=== PATIENT | male | born 1985 | race Caucasian/White ===

== ENCOUNTER 2017-02-28 22:54 | Inpatient (IN) | payer SELFPAY ==
[~2017-02-28] VITALS: Ht 182.9 cm; Wt 141.5 kg
[2017-02-28] MEDS ORDERED: MORPHINE SULFATE 10 MG/ML VIAL. IV ONE (23:30)
--- NOTE | 2017-02-28 23:30 | PHYS DOC ---
Adult General Chief Complaint Chief Complaint: COUGH HPI HPI Patient is a 31 year old male presenting with complaints of subjective fever, coughing up blood, this has been going on for 2-3 days. 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 Pt only past medical history is chemical exposure to lungs in 2007, pt is former smoker and he last smoked 1 month ago. Patient denies any recent trauma, denies pain or swelling in the lower extremities. Patient denies any rashes, vomiting, diarrhea, abdominal pain or back pain. Patient describes pain with inspiration. Review of Systems Review of Systems Constitutional: Yes to subjective fevers, no chills Eyes: Denies change in visual acuity, redness, or eye pain [] HENT: Denies nasal congestion. Yes to sore throat Respiratory: Yes to bloody cough and shortness of breath [] Cardiovascular: No chest pain unless taking deep breaths GI: Denies abdominal pain, nausea, vomiting, bloody stools or diarrhea [] : Denies dysuria or hematuria [] Musculoskeletal: Denies back pain or joint pain [] Integument: Denies rash or skin lesions [] Neurologic: Denies headache, focal weakness or sensory changes [] Current Medications Current Medications Current Medications Medications (Trade) Dose Ordered Sig/Stalin Start Time Stop Time Status Last Admin Dose Admin Info (Do NOT chart on this entry -- for MONITORING) 1 each PRN DAILY PRN 03/01/17 00:00 03/03/17 00:00 Iohexol (Omnipaque 300 Mg/ml) 75 ml 1X ONCE 03/01/17 00:00 03/01/17 00:01 DC 03/01/17 00:30 75 ML Morphine Sulfate 4 mg 1X ONCE 03/01/17 01:30 03/01/17 01:31 Sodium Chloride 1,000 ml @ 1,000 mls/hr 1X ONCE 02/28/17 23:45 03/01/17 00:44 DC 02/28/17 23:45 1,000 MLS/HR Allergies Allergies Allergies Coded Allergies Type Severity Reaction Last Updated Verified No Known Drug Allergies 02/28/17 No Physical Exam Physical Exam Constitutional: Well developed, well nourished, mild distress, non-toxic appearance. [] HENT: Normocephalic, atraumatic,, oropharynx dry, no oral exudates, nose normal. [] Eyes: EOMI, conjunctiva normal, no discharge. [] Neck: Normal range of motion, no tenderness, supple, no stridor. [] Cardiovascular: Tachycardia, equal pulses, normal perfusion Lungs & Thorax: Bilateral breath sounds clear to auscultation, mild tachypnea Abdomen: Bowel sounds normal, soft, no tenderness, no masses, no pulsatile masses. [] Skin: Warm, dry, no erythema, no rash. [] Back: No tenderness, no CVA tenderness. [] Extremities: No tenderness, no cyanosis, no DVT, ROM intact, no edema. [] Neurologic: Alert and oriented X 3, normal motor function, , no focal deficits noted. [] Psychologic: Affect normal, judgement normal, mood normal. [] Current Patient Data Vital Signs Vital Signs Date Time Temp Pulse Resp B/P (MAP) Pulse Ox O2 Delivery O2 Flow Rate FiO2 03/01/17 01:14 16 94 Room Air 03/01/17 00:19 110 146/67 (93) 02/28/17 23:15 100.6 100.6 Lab Values Laboratory Tests Test 02/28/17 23:35 White Blood Count 14.4 x10^3/uL (4.0-11.0) H Red Blood Count 4.94 x10^6/uL (4.30-5.70) Hemoglobin 14.4 g/dL (13.0-17.5) Hematocrit 42.5 % (39.0-53.0) Mean Corpuscular Volume 86 fL (79-100) Mean Corpuscular Hemoglobin 29 pg (25-35) Mean Corpuscular Hemoglobin Concent 34 g/dL (31-37) Red Cell Distribution Width 13.8 % (11.5-14.5) Platelet Count 318 x10^3/uL (140-400) Neutrophils (%) (Auto) 70 % (31-73) Lymphocytes (%) (Auto) 15 % (24-48) L Monocytes (%) (Auto) 13 % (0-9) H Eosinophils (%) (Auto) 1 % (0-3) Basophils (%) (Auto) 1 % (0-3) Neutrophils # (Auto) 10.0 x10^3uL (1.8-7.7) H Lymphocytes # (Auto) 2.1 x10^3/uL (1.0-4.8) Monocytes # (Auto) 1.9 x10^3/uL (0.0-1.1) H Eosinophils # (Auto) 0.1 x10^3/uL (0.0-0.7) Basophils # (Auto) 0.1 x10^3/uL (0.0-0.2) Segmented Neutrophils % 71 % (35-66) H Band Neutrophils % 2 % (0-9) Lymphocytes % 14 % (24-48) L Monocytes % 12 % (0-10) H Eosinophils % 1 % (0-5) Platelet Estimate Adequate (ADEQUATE) Prothrombin Time 13.9 SEC (11.7-14.0) Prothrombin Time INR 1.1 (0.8-1.1) Sodium Level 134 mmol/L (136-145) L Potassium Level 3.8 mmol/L (3.5-5.1) Chloride Level 98 mmol/L (98-107) Carbon Dioxide Level 29 mmol/L (21-32) Anion Gap 7 (6-14) Blood Urea Nitrogen 14 mg/dL (8-26) Creatinine 0.9 mg/dL (0.7-1.3) Estimated GFR (Cockcroft-Gault) 99.8 BUN/Creatinine Ratio 16 (6-20) Glucose Level 118 mg/dL (70-99) H Calcium Level 8.9 mg/dL (8.5-10.1) Total Bilirubin 0.4 mg/dL (0.2-1.0) Aspartate Amino Transferase (AST) 23 U/L (15-37) Alanine Aminotransferase (ALT) 24 U/L (16-63) Alkaline Phosphatase 75 U/L (46-116) Total Protein 8.0 g/dL (6.4-8.2) Albumin 3.3 g/dL (3.4-5.0) L Albumin/Globulin Ratio 0.7 (1.0-1.7) L Laboratory Tests 02/28/17 23:35 Laboratory Tests 02/28/17 23:35 EKG EKG [] Radiology/Procedures Radiology/Procedures CT: no PE, infiltrates L lingula Course & Med Decision Making Course & Med Decision Making Pertinent Labs and Imaging studies reviewed. (See chart for details) 0122 HR 107, pt still having some pain but improved. Agrees with admission [] Dragon Disclaimer Dragon Disclaimer This electronic medical record was generated, in whole or in part, using a voice recognition dictation system. Departure Departure Impression: Primary Impression: Pneumonia Additional Impression: Cough with hemoptysis Disposition: 09 ADMITTED INPATIENT Admitting Physician: Leah Trujillo Condition: STABLE Problem Qualifiers Malka PUTNAM MD Feb 28, 2017 23:30
[2017-02-28] MEDS ORDERED: IV NORMAL SALINE 1000ML BAG 1,000 ML IV ONE (23:45)
[2017-02-28 23:59] LABS: BASO # 0.1 x10^3/uL (0.0-0.2); BASO % 1 % (0-3); EOS % 1 % (0-3); HEMATOCRIT 42.5 % (39.0-53.0); HEMOGLOBIN 14.4 g/dL (13.0-17.5); LYMPH # 2.1 x10^3/uL (1.0-4.8); LYMPH % 15 % (24-48); MEAN CORPUSCULAR HEMOGLOBIN 29 pg (25-35); MEAN CORPUSCULAR HGB CONC 34 g/dL (31-37); MEAN CORPUSCULAR VOLUME 86 fL (79-100); MONO % 13 % (0-9); NEUT % 70 % (31-73); PLATELET COUNT 318 x10^3/uL (140-400); RED BLOOD COUNT 4.94 x10^6/uL (4.30-5.70); RED CELL DISTRIBUTION WIDTH 13.8 % (11.5-14.5); WHITE BLOOD COUNT 14.4 x10^3/uL (4.0-11.0)
[2017-03-01] MEDS ORDERED: CONTRAST GIVEN MC PRN
[2017-03-01] MEDS ORDERED: IOHEXOL 300 MG/ML 75 ML VIAL IV ONE
[2017-03-01 00:07] LABS: INR 1.1 (0.8-1.1); PROTHROMBIN TIME PATIENT 13.9 SEC (11.7-14.0)
[2017-03-01 00:13] LABS: CALCIUM 8.9 mg/dL (8.5-10.1); CREATININE 0.9 mg/dL (0.7-1.3); GFR 99.8; POTASSIUM 3.8 mmol/L (3.5-5.1)
[2017-03-01 00:18] LABS: ALBUMIN 3.3 g/dL (3.4-5.0); ALBUMIN/GLOBULIN RATIO 0.7 (1.0-1.7); TOTAL BILIRUBIN 0.4 mg/dL (0.2-1.0)
[2017-03-01 00:37] LABS: % EOS 1 % (0-5); PLT ESTIMATE ADEQUATE (ADEQUATE)
--- NOTE | 2017-03-01 01:13 | RAD ---
CT angiogram of the chest with contrast: Reason for examination: Hemoptysis. Chest pain. Helical images were obtained through the chest with intravenous administration of 75 cc Omnipaque 300 using PE protocol. 3-D MIPS reconstruction was performed in sagittal and coronal planes. Exposure: One or more of the following individualized dose reduction techniques were utilized for this examination: 1. Automated exposure control 2. Adjustment of the mA and/or kV according to patient size 3. Use of iterative reconstruction technique. No abnormality seen at the thyroid gland. The trachea and mainstem bronchi show no intraluminal lesions. No abnormality seen at the esophagus. The thoracic aorta shows no aneurysmal dilatation or dissection. The heart size is normal with no pericardial effusion. There is no evidence of pulmonary embolus. Note is made however of consolidative infiltrates in the left lingula. No pleural effusions or pneumothorax are seen. No abnormality seen at the liver, spleen, adrenal glands, pancreas or gallbladder. IMPRESSION: No evidence of pulmonary embolus. Consolidated infiltrates in the left lingula. Electronically signed by: Molly Mills MD (03/01/2017 1:11 AM) [place] [id number]
[2017-03-01] MEDS ORDERED: MORPHINE SULFATE 4 MG/ML DISP.SYRIN. IV ONE (01:30)
[2017-03-01] MEDS ORDERED: ONDANSETRON PF 4 MG/2 ML VIAL. IV PRN (01:30)
[2017-03-01 02:40] VITALS: BP 129/80
[2017-03-01] MEDS ORDERED: MORPHINE SULFATE 4 MG/ML DISP.SYRIN. IV PRN (03:00)
[2017-03-01] MEDS ORDERED: no home meds (03:42)
[2017-03-01] MEDS ORDERED: MORPHINE SULFATE 10 MG/ML VIAL. IV PRN (04:30)
[2017-03-01] MEDS: MORPHINE SULFATE 4 MG/ML DISP.SYRIN. IV PRN ×4 (04:40→20:38)
[2017-03-01 07:02] VITALS: BP 120/61
[2017-03-01] MEDS: IV NORMAL SALINE 1000ML BAG 1,000 ML IV SCH (10:53)
--- NOTE | 2017-03-01 11:47 | HP ---
ADMIT DATE: 03/01/2017 DATE OF SERVICE: 03/01/2017 CHIEF COMPLAINT: Cough. HISTORY OF PRESENT ILLNESS: The patient is a pleasant 31-year-old male presents with cough and subjective fevers that have been occurring for 3 days. Chest x-ray in the ER showing infiltrates in the left lower lung. He has been admitted with pneumonia. PAST MEDICAL HISTORY: Benign. ALLERGIES: None. FAMILY HISTORY: Hypertension. SOCIAL HISTORY: He does not drink, smoke or take drugs. 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 MEDICATIONS: Reviewed. REVIEW OF SYSTEMS: GENERAL: No history of weight change, weakness or fevers. SKIN: No bruising, hair changes or rashes. EYES: No blurred, double or loss of vision. NOSE AND THROAT: No history of nosebleeds, hoarseness or sore throat. HEART: No history of palpitations, chest pain or shortness of breath on exertion. PULMONARY: He complains of shortness of breath and cough. GASTROINTESTINAL: Denies changes in appetite, nausea, vomiting, diarrhea or constipation. GENITOURINARY: No history of frequency, urgency, hesitancy or nocturia. NEUROLOGIC: Denies history of numbness, tingling, tremor or weakness. PSYCHIATRIC: No history of panic, anxiety or depression. ENDOCRINE: No history of heat or cold intolerance, polyuria or polydipsia. EXTREMITIES: Denies muscle weakness, joint pain, pain on walking or stiffness. PHYSICAL EXAMINATION: VITAL SIGNS: Temperature afebrile, but his fever was 100.6 last night, pulse 80, respirations 18, blood pressure 120/80. GENERAL: He is alert. HEART: Normal S1, S2. LUNGS: Coarse in the left. ABDOMEN: Soft, positive bowel sounds, a little obese. EXTREMITIES: Trace edema. SKIN: No rashes. PSYCHIATRIC: He is stable. VASCULAR: Good capillary refill. ENDOCRINE: No thyromegaly. LYMPHATICS: No cervical nodes. HEMATOPOIETIC: No bruising. LABORATORY DATA: White count 14, hemoglobin 14, platelets 318. Electrolytes normal other than sodium 134, glucose of 118, albumin is a little low at 3.3. INR 1.1. ASSESSMENT AND PLAN: Left lower lobe pneumonia, leukocytosis, mild hypoalbuminemia, suspicious for mild malnutrition, hyponatremia, hyperglycemia. The patient has been admitted. We will start IV antibiotics, breathing treatments, oxygen. Consult Dr. Craven, continue home medicines, PT, OT, frequent labs, adjust his electrolytes. MARIANA NINO DO DR: RADHA/florencia JOB#: [id number] / [id number]
[2017-03-01 11:51] VITALS: BP 127/70
--- NOTE | 2017-03-01 12:18 | CONS ---
DATE OF CONSULTATION: ATTENDING PHYSICIAN: Dr. Trujillo. REASON FOR CONSULTATION: Hemoptysis. 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 He presented to the hospital complaining of subjective fever, coughing up blood for the last 2-3 days. The patient had minimal history of tobacco use in the past, no history of drugs. The patient was having chest pain with coughing. He underwent CTA chest, which was reviewed by me and it shows no evidence of any pulmonary embolism. There were consolidated infiltrates in the left lingula. He was started on antibiotics. He has no further hemoptysis since. He has history of chemical exposure in 2007. At that time, he had respiratory failure. He did not develop any asthma after the exposure. PAST MEDICAL HISTORY: Significant for morbid obesity, suspect SOBIA. PAST SURGICAL HISTORY: No recent surgeries. ALLERGIES: None. CURRENT MEDICATIONS: Reviewed as listed in the [facility] including antibiotic Rocephin. REVIEW OF SYSTEMS: As discussed in my history of present illness, otherwise noncontributory. SOCIAL HISTORY: Minimal history of tobacco use. He is a pole truck driver. No drug use. PHYSICAL EXAMINATION: VITAL SIGNS: Reviewed. His T-max was 100.6. He is afebrile now, blood pressure is more stable. Pulse ox 93% on room air. NECK: Supple. LUNGS: Clear breath sounds. CARDIOVASCULAR: Regular rate and rhythm. ABDOMEN: Soft, obese. EXTREMITIES: With no pitting edema. LABORATORY DATA: Reviewed. White cell count 14.4. BUN and creatinine normal. IMPRESSION: 1. Hemoptysis secondary to lingular pneumonia. 2. No significant history of tobacco use. 3. Abnormal CT chest consistent with lingular pneumonia. 4. History of chemical exposure to lungs in 2007, developed respiratory failure as a result of that, but did not develop any reactive airway dysfunction syndrome. RECOMMENDATIONS: 1. Continue antibiotics. 2. Monitor for any further fever or any persistent hemoptysis. 3. The patient should respond to antibiotics. 4. Clinically improved, can be discharged on oral antibiotics. 5. Consider sleep study as an outpatient. KIRSTEN CHAHAL MD DR: KARLIE/florencia JOB#: [id number] / [id number]
[2017-03-01] MEDS: HYDROcodone/APAP 5/325MG 1 TAB TABLET PO PRN ×2 (12:43→23:36)
[2017-03-01 15:59] VITALS: BP 138/79
[2017-03-01 19:53] VITALS: BP 129/70
[2017-03-01 23:50] VITALS: BP 152/77
[2017-03-02] MEDS: IV NORMAL SALINE 1000ML BAG 1,000 ML IV SCH ×2 (01:47→12:10)
[2017-03-02 03:48] VITALS: BP 117/73
[2017-03-02 06:33] LABS: BASO # 0.1 x10^3/uL (0.0-0.2); BASO % 1 % (0-3); EOS % 1 % (0-3); HEMATOCRIT 41.3 % (39.0-53.0); HEMOGLOBIN 13.7 g/dL (13.0-17.5); LYMPH # 1.8 x10^3/uL (1.0-4.8); LYMPH % 16 % (24-48); MEAN CORPUSCULAR HEMOGLOBIN 29 pg (25-35); MEAN CORPUSCULAR HGB CONC 33 g/dL (31-37); MEAN CORPUSCULAR VOLUME 87 fL (79-100); MONO % 16 % (0-9); NEUT % 66 % (31-73); PLATELET COUNT 290 x10^3/uL (140-400); RED BLOOD COUNT 4.76 x10^6/uL (4.30-5.70); RED CELL DISTRIBUTION WIDTH 14.1 % (11.5-14.5); WHITE BLOOD COUNT 11.5 x10^3/uL (4.0-11.0)
[2017-03-02 06:41] LABS: CALCIUM 8.5 mg/dL (8.5-10.1); CREATININE 0.7 mg/dL (0.7-1.3); GFR 133.3; POTASSIUM 3.9 mmol/L (3.5-5.1)
[2017-03-02 07:02] VITALS: BP 133/73
[2017-03-02 11:09] VITALS: BP 126/77
--- NOTE | 2017-03-02 12:13 | PDOC ---
PROGRESS NOTES Chief Complaint Chief Complaint LLL PNA ASSESSMENT AND PLAN: 1. LLL PNA: on IV abx; hemoptysis resolved. appreciate Dr Craven's input 2. Leucocytosis: improved 3. Dispo: home today History of Present Illness History of Present Illness feels much better, mild dyspnea on exertion Vitals Vitals Vital Signs Date Time Temp Pulse Resp B/P (MAP) Pulse Ox O2 Delivery O2 Flow Rate FiO2 03/02/17 11:09 98.1 96 20 126/77 (93) 94 Room Air 98.1 Physical Exam General: Alert, Oriented X3, Cooperative, No acute distress Heart: Regular rate Lungs: Clear Abdomen: Normal bowel sounds Extremities: No clubbing Skin: No rashes Labs LABS Laboratory Tests Test 03/02/17 05:56 White Blood Count 11.5 x10^3/uL (4.0-11.0) Red Blood Count 4.76 x10^6/uL (4.30-5.70) Hemoglobin 13.7 g/dL (13.0-17.5) Hematocrit 41.3 % (39.0-53.0) Mean Corpuscular Volume 87 fL (79-100) Mean Corpuscular Hemoglobin 29 pg (25-35) Mean Corpuscular Hemoglobin Concent 33 g/dL (31-37) Red Cell Distribution Width 14.1 % (11.5-14.5) Platelet Count 290 x10^3/uL (140-400) Neutrophils (%) (Auto) 66 % (31-73) Lymphocytes (%) (Auto) 16 % (24-48) Monocytes (%) (Auto) 16 % (0-9) Eosinophils (%) (Auto) 1 % (0-3) Basophils (%) (Auto) 1 % (0-3) Neutrophils # (Auto) 7.6 x10^3uL (1.8-7.7) Lymphocytes # (Auto) 1.8 x10^3/uL (1.0-4.8) Monocytes # (Auto) 1.9 x10^3/uL (0.0-1.1) Eosinophils # (Auto) 0.1 x10^3/uL (0.0-0.7) Basophils # (Auto) 0.1 x10^3/uL (0.0-0.2) Sodium Level 136 mmol/L (136-145) Potassium Level 3.9 mmol/L (3.5-5.1) Chloride Level 99 mmol/L (98-107) Carbon Dioxide Level 29 mmol/L (21-32) Anion Gap 8 (6-14) Blood Urea Nitrogen 9 mg/dL (8-26) Creatinine 0.7 mg/dL (0.7-1.3) Estimated GFR (Cockcroft-Gault) 133.3 Glucose Level 108 mg/dL (70-99) Calcium Level 8.5 mg/dL (8.5-10.1) RAMON MARIN MD Mar 02, 2017 12:12
--- NOTE | 2017-03-02 12:47 | PDOC ---
PULMONARY PROGRESS NOTES Subjective no further hemoptysis Vitals Vital Signs Date Time Temp Pulse Resp B/P (MAP) Pulse Ox O2 Delivery O2 Flow Rate FiO2 03/02/17 11:09 98.1 96 20 126/77 (93) 94 Room Air 98.1 General: Alert, No acute distress Lungs: Clear Cardiovascular: S1 Abdomen: Soft Neuro Exam: Alert Extremities: No Edema Labs Laboratory Tests Test 02/28/17 23:35 03/02/17 05:56 White Blood Count 14.4 x10^3/uL (4.0-11.0) 11.5 x10^3/uL (4.0-11.0) Red Blood Count 4.94 x10^6/uL (4.30-5.70) 4.76 x10^6/uL (4.30-5.70) Hemoglobin 14.4 g/dL (13.0-17.5) 13.7 g/dL (13.0-17.5) Hematocrit 42.5 % (39.0-53.0) 41.3 % (39.0-53.0) Mean Corpuscular Volume 86 fL (79-100) 87 fL (79-100) Mean Corpuscular Hemoglobin 29 pg (25-35) 29 pg (25-35) Mean Corpuscular Hemoglobin Concent 34 g/dL (31-37) 33 g/dL (31-37) Red Cell Distribution Width 13.8 % (11.5-14.5) 14.1 % (11.5-14.5) Platelet Count 318 x10^3/uL (140-400) 290 x10^3/uL (140-400) Neutrophils (%) (Auto) 70 % (31-73) 66 % (31-73) Lymphocytes (%) (Auto) 15 % (24-48) 16 % (24-48) Monocytes (%) (Auto) 13 % (0-9) 16 % (0-9) Eosinophils (%) (Auto) 1 % (0-3) 1 % (0-3) Basophils (%) (Auto) 1 % (0-3) 1 % (0-3) Neutrophils # (Auto) 10.0 x10^3uL (1.8-7.7) 7.6 x10^3uL (1.8-7.7) Lymphocytes # (Auto) 2.1 x10^3/uL (1.0-4.8) 1.8 x10^3/uL (1.0-4.8) Monocytes # (Auto) 1.9 x10^3/uL (0.0-1.1) 1.9 x10^3/uL (0.0-1.1) Eosinophils # (Auto) 0.1 x10^3/uL (0.0-0.7) 0.1 x10^3/uL (0.0-0.7) Basophils # (Auto) 0.1 x10^3/uL (0.0-0.2) 0.1 x10^3/uL (0.0-0.2) Segmented Neutrophils % 71 % (35-66) Band Neutrophils % 2 % (0-9) Lymphocytes % 14 % (24-48) Monocytes % 12 % (0-10) Eosinophils % 1 % (0-5) Platelet Estimate Adequate (ADEQUATE) Prothrombin Time 13.9 SEC (11.7-14.0) Prothromb Time International Ratio 1.1 (0.8-1.1) Sodium Level 134 mmol/L (136-145) 136 mmol/L (136-145) Potassium Level 3.8 mmol/L (3.5-5.1) 3.9 mmol/L (3.5-5.1) Chloride Level 98 mmol/L (98-107) 99 mmol/L (98-107) Carbon Dioxide Level 29 mmol/L (21-32) 29 mmol/L (21-32) Anion Gap 7 (6-14) 8 (6-14) Blood Urea Nitrogen 14 mg/dL (8-26) 9 mg/dL (8-26) Creatinine 0.9 mg/dL (0.7-1.3) 0.7 mg/dL (0.7-1.3) Estimated GFR (Cockcroft-Gault) 99.8 133.3 BUN/Creatinine Ratio 16 (6-20) Glucose Level 118 mg/dL (70-99) 108 mg/dL (70-99) Calcium Level 8.9 mg/dL (8.5-10.1) 8.5 mg/dL (8.5-10.1) Total Bilirubin 0.4 mg/dL (0.2-1.0) Aspartate Amino Transf (AST/SGOT) 23 U/L (15-37) Alanine Aminotransferase (ALT/SGPT) 24 U/L (16-63) Alkaline Phosphatase 75 U/L (46-116) Total Protein 8.0 g/dL (6.4-8.2) Albumin 3.3 g/dL (3.4-5.0) Albumin/Globulin Ratio 0.7 (1.0-1.7) Laboratory Tests Test 03/02/17 05:56 White Blood Count 11.5 x10^3/uL (4.0-11.0) Red Blood Count 4.76 x10^6/uL (4.30-5.70) Hemoglobin 13.7 g/dL (13.0-17.5) Hematocrit 41.3 % (39.0-53.0) Mean Corpuscular Volume 87 fL (79-100) Mean Corpuscular Hemoglobin 29 pg (25-35) Mean Corpuscular Hemoglobin Concent 33 g/dL (31-37) Red Cell Distribution Width 14.1 % (11.5-14.5) Platelet Count 290 x10^3/uL (140-400) Neutrophils (%) (Auto) 66 % (31-73) Lymphocytes (%) (Auto) 16 % (24-48) Monocytes (%) (Auto) 16 % (0-9) Eosinophils (%) (Auto) 1 % (0-3) Basophils (%) (Auto) 1 % (0-3) Neutrophils # (Auto) 7.6 x10^3uL (1.8-7.7) Lymphocytes # (Auto) 1.8 x10^3/uL (1.0-4.8) Monocytes # (Auto) 1.9 x10^3/uL (0.0-1.1) Eosinophils # (Auto) 0.1 x10^3/uL (0.0-0.7) Basophils # (Auto) 0.1 x10^3/uL (0.0-0.2) Sodium Level 136 mmol/L (136-145) Potassium Level 3.9 mmol/L (3.5-5.1) Chloride Level 99 mmol/L (98-107) Carbon Dioxide Level 29 mmol/L (21-32) Anion Gap 8 (6-14) Blood Urea Nitrogen 9 mg/dL (8-26) Creatinine 0.7 mg/dL (0.7-1.3) Estimated GFR (Cockcroft-Gault) 133.3 Glucose Level 108 mg/dL (70-99) Calcium Level 8.5 mg/dL (8.5-10.1) Medications Active Scripts Medications Dose Route/Sig Max Daily Dose Days Date Category [no home meds] 03/01/17 Reported Impression . 1. Hemoptysis secondary to lingular pneumonia. resolved 2. No significant history of tobacco use. 3. Abnormal CT chest consistent with lingular pneumonia. 4. History of chemical exposure to lungs in 2007, developed respiratory failure as a result of that, but did not develop any reactive airway dysfunction syndrome. Plan . 1. Continue antibiotics. can change to PO 2. No further fever or hemoptysis. 3. The patient can go home on PO antibiotics. 4. Consider sleep study as an outpatient. KIRSTEN CHAHAL MD Mar 02, 2017 12:47
[2017-03-02] MEDS ORDERED: HYDR-2758 PO (14:54)
[2017-03-02] MEDS ORDERED: LEVO750T31 PO (14:54)
[2017-03-02 14:59] VITALS: BP 135/91
--- NOTE | 2017-03-05 15:15 | DS ---
DATE OF DISCHARGE: 03/02/2017 CHIEF COMPLAINT: Left lower lobe pneumonia. HOSPITAL COURSE: The patient is a 31-year-old gentleman who presented to the Emergency Room with several days of cough and new onset hemoptysis. He was diagnosed with left lower lobe pneumonia via a CT in the Emergency Room. He was therefore admitted. Hemoptysis was attributed to the infection. He was seen by Pulmonology and was deemed stable for discharge the following day on p.o. antibiotic regimen. His symptoms including leukocytosis at this time have significantly improved. PHYSICAL EXAM: Please see H&P from today DISCHARGE DIAGNOSIS: Left lower lobe pneumonia. DISCHARGE DISPOSITION: To home. DISCHARGE CONDITION: Improved. DISCHARGE MEDICATIONS: Please refer to MAR. DISCHARGE INSTRUCTIONS: The patient will follow up with his PCP in 1-2 weeks. He will follow up with Dr. Craven in 4 weeks. RAMON MARIN MD DR: CHERIE/nts JOB#: [id number] / [id number] FIONA
== END 2017-03-02 17:05 | disposition home or self-care (01) | DRG 871 ==
LOC: ER 22:54 → 6 SOUTH 03-01 01:18
PROVIDERS: ADMIT Internal Medicine; ATTEND Internal Medicine
DX: A41.9 Sepsis, unspecified organism (principal); J69.0 Pneumonitis due to inhalation of food and vomit; Z68.41 Body mass index [BMI] 40.0-44.9, adult; R04.2 Hemoptysis; E87.1 Hypo-osmolality and hyponatremia; E88.09 Other disorders of plasma-protein metabolism, not elsewhere classified; E66.01 Morbid (severe) obesity due to excess calories; Z87.891 Personal history of nicotine dependence; Z82.49 Family history of ischemic heart disease and other diseases of the circulatory system; R73.9 Hyperglycemia, unspecified
CPT/HCPCS: 36415; 71275; 80048; 80053; 85007; 85025; 85610; 86850; 86900; 86901; 96361; 96374; J0690; J0696; J2270; J7030; Q9967; 99285-25